=== PATIENT | female | born 1965 | race Hispanic/Latino ===

== ENCOUNTER 2021-06-26 06:59 | Day surgery (SDC) | payer BC ==
[2021-06-25 09:47] LABS: Hematocrit 32.4 % (30.3-42.9); Hemoglobin 10.7 gm/dl (10.1-14.3); Mean Corpuscular HGB Conc 33 % (30-34); Mean Corpuscular Volume 91 fl (79-97); Platelet Count 305 K/mm3 (140-440); Red Blood Count 3.57 M/mm3 (3.65-5.03); Red Cell Distribution Width 15.9 % (13.2-15.2)
--- NOTE | 2021-06-25 09:52 | Anesthesia Consultation ---
Anesthesia Consult and Med Hx - Airway Anesthetic Teeth Evaluation: Good ROM Head & Neck: Adequate Mental/Hyoid Distance: Adequate Mallampati Class: Class II Intubation Access Assessment: Good - Pulmonary Exam CTA: Yes - Cardiac Exam Cardiac Exam: RRR - Pre-Operative Health Status ASA Pre-Surgery Classification: ASA3 Proposed Anesthetic Plan: General - Pulmonary Hx Smoking: Yes (Former) - Cardiovascular System Hx Hypertension: Yes Hx Coronary Artery Disease: Yes (Stents, holding blood thinners) - Central Nervous System Hx Psychiatric Problems: No - Endocrine Hx Renal Disease: Yes Hx Hypothyroidism: Yes - Hematic Hx Anemia: Yes - Other Systems Hx Cancer: No
[2021-06-25 10:45] LABS: Albumin 3.8 g/dL (3.9-5); Calcium 9.1 mg/dL (8.4-10.2)
[~2021-06-26 06:59] MED LIST: LACTATED RINGERS 1,000 ML IV SCH; MIDAZOLAM 2 MG/2 ML INJ IV NR
[2021-06-26 09:09] LABS: INR 0.93 (0.87-1.13); Partial Thromboplastin Time 27.1 Sec. (24.2-36.6)
[2021-06-26] MEDS ORDERED: NALOXONE 0.4 MG/1 ML INJ IV PRN (09:25)
[2021-06-26] MEDS ORDERED: ONDANSETRON 4 MG/2 ML INJ IV PRN (09:25)
[2021-06-26] MEDS ORDERED: HYDROmorphone 1 MG/1 ML INJ IV PRN ×2 (09:25)
[2021-06-26] MEDS ORDERED: MEPERIDINE 25 MG/1 ML INJ IV PRN (09:25)
[2021-06-26] MEDS ORDERED: oxyCODONE /ACETAMINOPHEN 5-325MG TAB PO PRN (09:25)
[2021-06-26] MEDS ORDERED: MIDAZOLAM 2 MG/2 ML INJ IV ONE (09:31)
--- NOTE | 2021-06-26 09:46 | Operative Report ---
Operative Report Operative Report: Preoperative diagnosis: Postmenopausal bleeding Postoperative diagnosis: Same Procedure: Hysteroscopy dilation and curettage Surgeon: Dr. Aimee Jason Anesthesia: GETA EBL: Minimal Urine output: 50ml clear urine IV fluids: 1 L crystalloid Complications: None Drains: None Finding: Exam under anesthesia revealed an atrophic uterus in the midline with smooth parametria no adnexal masses, rectovaginal septum is smooth with no appreciable masses. Speculum exam cervix is pink vaginal and cervical par ametria showed no masses or nodularity. Procedure: Patient was counseled in preop holding area about risks benefits possible complications as well as alternatives to the procedure. Informed consent was obtained. She was taken to the OR where she received excellent general endotracheal anesthesia. She was then placed in a dorsal lithotomy position. Exam under anesthesia revealed the above findings. Patient was then prepped and draped in a sterile fashion. A timeout was verified. Patient was straight cathed with a red rubber catheter, with 50 mL urine obtained. A speculum was placed in the vaginal vault, the cervix was noted to be pink with no lesions. A single-tooth tenaculum was placed on the anterior lip of the cervix and the endometrium sounded to 6 cm. The cervix was then dilated to allow for the passage of the hysteroscope. The uterus was hydrodistended, the endometrium was noted to be atrophic with one area of polyploid lesion. Sharp curettage was performed with the Kevorkian curette. Endometrial samplings were sent to pathology. At the completion of the procedure the hysteroscope, tenaculum, and speculum were removed from the uterus cervix and vagina respectiv hernando. EBL minimal. Patient extubated and taken to the PACU in stable condition. Patient's family notified of stable condition for completion of the procedure. All sponge needle instrument counts correct x2. Patient will follow-up in the outpatient setting in 1 week. All sponge needle instrument counts are correct x2. Gonzalez MEADE
[2021-06-26] MEDS ORDERED: ONDANSETRON 4 MG/2 ML INJ ONE (09:53)
[2021-06-26] MEDS ORDERED: fentaNYL 100 MCG/2 ML INJ ONE (09:53)
[2021-06-26] MEDS ORDERED: LIDOCAINE MPF (2%) 20 MG/1 ML VIAL 5 ML ONE (09:53)
[2021-06-26] MEDS ORDERED: dexAMETHasone 20 MG/5 ML VIAL ONE (09:53)
[2021-06-26] MEDS ORDERED: propofoL 200 MG/20 ML VIAL IV ONE (09:54)
[2021-06-26] MEDS ORDERED: SILVER NITRATE APPLICATOR 1 EA TP ONE (10:03)
[2021-06-26] MEDS ORDERED: SODIUM CHLORIDE 0.9% IRRIG SOLN 2000 ML IR ONE (10:30)
--- NOTE | 2021-06-26 13:29 | Post Anesthesia Evaluation ---
- Post Anesthesia Evaluation Patient Participated: Yes Airway Patent: Yes Stable Respiratory Function: Yes Nausea/Vomiting: No Temp > 96.8F: Yes Pain Manageable: Yes Adequeate Hydration: Yes Anesthesia Complications: No
--- NOTE | 2021-06-26 13:29 | Anesthesia Day of Surgery ---
Anesthesia Day of Surgery - Day of Surgery Patient Examined: Yes Patient H&P Reviewed: Yes Patient is NPO: Yes
[2021-06-26 19:11] VITALS: BP 142/72
== END 2021-06-26 07:00 | disposition home or self-care (01) ==
LOC: OR 06:59
PROVIDERS: ATTEND Obstetrics & Gynecology
DX: N95.0 Postmenopausal bleeding (principal); N85.8 Other specified noninflammatory disorders of uterus; I13.2 Hypertensive heart and chronic kidney disease with heart failure and with stage 5 chronic kidney disease, or end stage renal disease; N18.6 End stage renal disease; I50.9 Heart failure, unspecified; I25.10 Atherosclerotic heart disease of native coronary artery without angina pectoris; E03.9 Hypothyroidism, unspecified; Z20.822 Contact with and (suspected) exposure to COVID-19; Z88.8 Allergy status to other drugs, medicaments and biological substances; Z79.899 Other long term (current) drug therapy; Z79.01 Long term (current) use of anticoagulants; Z87.891 Personal history of nicotine dependence; Z98.41 Cataract extraction status, right eye; Z98.42 Cataract extraction status, left eye; Z86.718 Personal history of other venous thrombosis and embolism; Z98.890 Other specified postprocedural states; Z99.2 Dependence on renal dialysis
CPT/HCPCS: 36415; 58558; 80053; 85027; 85610; 85730; 88305; J1100; J2250; J2405; J2704; J3010; J3490; J7120; U0003